=== PATIENT | female | born 1980 | race African-American/Black ===

== ENCOUNTER 2016-06-25 08:37 | Emergency (ER) | payer OTHER ==
[2016-06-25 08:46] VITALS: TEMP 98.3
--- NOTE | 2016-06-25 09:09 | ED ---
Lower Extremity Injury HPI - General Chief Complaint: Extremity Problem,Nontraumatic Stated Complaint: leg pain Time Seen by Provider: 06/25/16 08:49 Source: patient, RN notes reviewed Mode of arrival: ambulatory Limitations: no limitations - History of Present Illness Initial Comments: 36-year-old female presents to the emergency Department with chief complaint of left leg pain. Patient states has been bothersome the last 2 weeks states feels like a charley horse. Patient states that she did have right leg pain months back headache since of EMG studies and testing with Dr. Martinez. Patient does have a history of back pain. Patient states is no back pain this time just left leg pain. Patient states her some swelling. Denies any chest pain or shortness of breath. Denies any history of DVTs. - Related Data Home Medications Medication Instructions Recorded Confirmed Levothyroxine Sodium [Synthroid] 25 mcg PO DAILY 12/15/15 06/25/16 Previous Rx's Medication Instructions Recorded methylPREDNISolone [Medrol Dose 4 mg PO DIRECTED #1 pack 06/25/16 Pack] Allergies Allergy/AdvReac Type Severity Reaction Status Date / Time No Known Allergies Allergy Verified 06/25/16 09:01 Review of Systems ROS Statement: Those systems with pertinent positive or pertinent negative responses have been documented in the HPI. ROS Other: All systems not noted in ROS Statement are negative. Past Medical History Past Medical History: No Reported History, Thyroid Disorder History of Any Multi-Drug Resistant Organisms: None Reported Past Surgical History: No Surgical Hx Reported, Tubal Ligation Past Psychological History: No Psychological Hx Reported Smoking Status: Current some day smoker Past Alcohol Use History: Occasional Past Drug Use History: None Reported General Exam Limitations: no limitations General appearance: alert, in no apparent distress Respiratory exam: Present: normal lung sounds bilaterally. Absent: respiratory distress, wheezes, rales, rhonchi, stridor Cardiovascular Exam: Present: regular rate, normal rhythm, normal heart sounds. Absent: systolic murmur, diastolic murmur, rubs, gallop, clicks Extremities exam: Present: normal inspection, full ROM, normal capillary refill , calf tenderness (Mild left), other (Equal color equal warmth and pedal pulses equal bilaterally of lower extremities). Absent: tenderness, pedal edema, joint swelling Back exam: Present: full ROM. Absent: tenderness, paraspinal tenderness, vertebral tenderness Neurological exam: Present: alert, oriented X3, CN II-XII intact Skin exam: Present: warm, dry, intact, normal color. Absent: rash Course Vital Signs 06/25/16 08:39 Temperature 98.3 F Pulse Rate 80 Respiratory 20 Rate Blood Pressure 124/55 O2 Sat by Pulse 100 Oximetry Medical Decision Making - Medical Decision Making [age] female presented for left leg pain. Patient's ultrasound negative for acute DVT. Patient most likely has lumbar radiculopathy. Patient will follow- up neurology as she seen in the past. Return parameters were discussed. Disposition Clinical Impression: Lumbar radiculopathy, acute Disposition: HOME SELF-CARE Condition: Stable Instructions: Lumbar Radiculopathy (ED) Additional Instructions: Please return to the Emergency Department if symptoms worsen or any other concerns. Prescriptions: methylPREDNISolone [Medrol Dose Pack] 4 mg PO DIRECTED #1 pack Time of Disposition: 10:12
[2016-06-25 10:28] VITALS: BP 122/61; PULSE 85; RESP 16
--- NOTE | 2016-06-25 10:44 | US ---
EXAMINATION TYPE: US venous doppler duplex LE LT DATE OF EXAM: 06/25/2016 10:03 AM COMPARISON: NONE CLINICAL HISTORY: Pain. Pain left leg SIDE PERFORMED: left TECHNIQUE: The lower extremity deep venous system is examined utilizing real time linear array sonog divine with graded compression, doppler sonography and color-flow sonography. VESSELS IMAGED: External Iliac Vein (EIV) Common Femoral Vein Deep Femoral Vein Greater Saphenous Vein * Femoral Vein Popliteal Vein Small Saphenous Vein * Proximal Calf Veins (* superficial vessels) Left Leg: NO evidence of DVT Grayscale, color doppler, spectral doppler imaging performed of the deep veins of the lower extremiti es. There is normal flow, compressibility, vascular waveforms in the visualized left lower extremity . IMPRESSION: No ultrasound evidence for acute DVT in the left lower extremity.
== END 2016-06-25 10:28 | disposition home or self-care (01) ==
LOC: EC 08:37
DX: M54.16 Radiculopathy, lumbar region (principal); E07.9 Disorder of thyroid, unspecified; F17.200 Nicotine dependence, unspecified, uncomplicated; Z79.899 Other long term (current) drug therapy
CPT/HCPCS: 99283

== ENCOUNTER → 2016-07-17 | Outpatient (CLI) | payer OTHER | END | disposition home or self-care (01) | LOC: RADMRIMAIN 07:49 | PROVIDERS: ATTEND Nurse Practitioner Acute Care | DX: Z53.9 Procedure and treatment not carried out, unspecified reason (principal) ==

== ENCOUNTER → 2016-07-21 | Outpatient (CLI) | payer OTHER ==
--- NOTE | 2016-07-21 17:24 | MR ---
EXAMINATION TYPE: MR lumbar spine wo con DATE OF EXAM: 07/21/2016 COMPARISON: Prior lumbar MRI 21 April 2015 HISTORY: Lumbago TECHNIQUE: Multiplanar, multisequence images of the lumbar spine were acquired. L1-L2: Normal disc appearance without desiccation. No herniation, protrusion or disc bulging. No ca nal stenosis is present. Foramina are patent bilaterally. L2-L3: Normal disc appearance without desiccation. No herniation, protrusion or disc bulging. No ca nal stenosis is present. Foramina are patent bilaterally. L3-L4: Normal disc appearance without desiccation. No herniation, protrusion or disc bulging. No ca nal stenosis is present. Foramina are patent bilaterally. L4-L5: Normal disc appearance without desiccation. No herniation, protrusion or disc bulging. No ca nal stenosis is present. Foramina are patent bilaterally. L5-S1: Left posterior paracentral disc herniation causes anterolateral mass effect on the thecal sac and likely contact of the left S1 nerve root. Loss of disc height and signal is present. Lumbar segments are intact. No paraspinal masses are identified. Conus medullaris has a normal appe arance. Lumbar vertebral bodies show preserved height and alignment, bone marrow signal. IMPRESSION: No significant interval change. Disc herniation L5-S1 shows a stable appearance, correlate for left S 1 radiculopathy.
== END | disposition home or self-care (01) ==
LOC: RADMRIMAIN 13:54
PROVIDERS: ATTEND Nurse Practitioner Acute Care
DX: M51.27 Other intervertebral disc displacement, lumbosacral region (principal)
CPT/HCPCS: 72148

== ENCOUNTER 2016-08-29 13:45 | Emergency (ER) | payer OTHER ==
[2016-08-29 14:11] VITALS: BP 119/72; PULSE 90; RESP 20; TEMP 97.8
--- NOTE | 2016-08-29 15:37 | ED ---
Extremity Problem HPI - General Chief complaint: Extremity Problem,Nontraumatic Stated complaint: leg pain Time Seen by Provider: 08/29/16 14:18 Source: patient, RN notes reviewed, old records reviewed Mode of arrival: ambulatory Limitations: no limitations - History of Present Illness Initial comments: 36-year-old female chief complaint of left lower leg pain for the past 2 days. Patient reports that she has no injury to cause this pain. She reports that she was seen personally 2 months ago for similar complaint however this time the pain is only over her calf and towards her ankle. She states that there is no pain behind the knee or reading up the leg. She denies any swelling. She denies any warmth to the area. Patient reports that she has had no fever or chills or any other associated symptoms aside the leg pain. Patient denies any history of blood clots.Patient denies any recent fever, chills, shortness of breath, chest pain, back pain, abdominal pain, nausea vomiting, numbness or tingling, dysuria or hematuria, constipation or diarrhea, headaches or visual changes, or any other current symptoms - Related Data Previous Rx's Medication Instructions Recorded Ibuprofen [Motrin] 600 mg PO Q6HR PRN #20 tab 08/29/16 traMADol HCl [Ultram] 50 mg PO Q4H PRN #10 tab 08/29/16 Allergies Allergy/AdvReac Type Severity Reaction Status Date / Time No Known Allergies Allergy Verified 08/29/16 14:37 Review of Systems ROS Statement: Those systems with pertinent positive or pertinent negative responses have been documented in the HPI. ROS Other: All systems not noted in ROS Statement are negative. Past Medical History Past Medical History: Thyroid Disorder History of Any Multi-Drug Resistant Organisms: None Reported Past Surgical History: Tubal Ligation Past Psychological History: No Psychological Hx Reported Smoking Status: Current some day smoker Past Alcohol Use History: Occasional Past Drug Use History: None Reported General Exam - General Exam Comments Initial Comments: 36-year-old female. No distress. Limitations: no limitations Head exam: Present: atraumatic, normocephalic, normal inspection Eye exam: Present: normal appearance, PERRL, EOMI. Absent: scleral icterus, conjunctival injection, periorbital swelling ENT exam: Present: normal exam, mucous membranes moist Neck exam: Present: normal inspection. Absent: tenderness, meningismus, lymphadenopathy Respiratory exam: Present: normal lung sounds bilaterally. Absent: respiratory distress, wheezes, rales, rhonchi, stridor Cardiovascular Exam: Present: regular rate, normal rhythm, normal heart sounds. Absent: systolic murmur, diastolic murmur, rubs, gallop, clicks GI/Abdominal exam: Present: soft, normal bowel sounds. Absent: distended, tenderness, guarding, rebound, rigid Extremities exam: Present: normal inspection, full ROM, normal capillary refill , calf tenderness (Left inferior calf tenderness. No evidence of significant swelling. Patient has full range of motion of the foot and ankle.), other ( tender over achilles tendon). Absent: tenderness, pedal edema, joint swelling Back exam: Present: normal inspection Neurological exam: Present: alert, oriented X3, CN II-XII intact Psychiatric exam: Present: normal affect, normal mood Skin exam: Present: warm, dry, intact, normal color. Absent: rash Course Vital Signs 08/29/16 14:09 Temperature 97.8 F Pulse Rate 90 Respiratory 20 Rate Blood Pressure 119/72 O2 Sat by Pulse 100 Oximetry Medical Decision Making - Medical Decision Making 36-year-old female chief complaint of left lower leg pain for the past 2 days. Patient reports that she has no injury to cause this pain. She reports that she was seen personally 2 months ago for similar complaint however this time the pain is only over her calf and towards her ankle. She states that there is no pain behind the knee or reading up the leg. She denies any swelling. She denies any warmth to the area. Patient reports that she has had no fever or chills or any other associated symptoms aside the leg pain. Patient denies any history of blood clots. Patient received Doppler ultrasound left lower extremity. No evidence of deformity or swelling. Patient ultrasound is negative for DVT. Patient will be discharged with anti-inflammatory medication. Discussed stretching in the area out and massaging it. Discussed applying heat and ice over the area as well. Patient understands treatment plan will comply. Return parameters were discussed. - Radiology Data Radiology results: report reviewed Doppler ultrasound is negative for DVT. Disposition Clinical Impression: Strain of Achilles tendon Disposition: HOME SELF-CARE Condition: Good Instructions: Achilles Tendinitis (ED) Additional Instructions: Patient is apply a heat and ice over the area. Do passive stretching over the back of the calf. Also recommend massaging the area. Return to the emergency department if any alarming signs or symptoms occur. Prescriptions: Ibuprofen [Motrin] 600 mg PO Q6HR PRN #20 tab PRN Reason: Pain traMADol HCl [Ultram] 50 mg PO Q4H PRN #10 tab PRN Reason: Pain Referrals: Karen Madsen MD [Primary Care Provider] - 1-2 days Time of Disposition: 15:49
--- NOTE | 2016-08-29 15:42 | US ---
EXAMINATION TYPE: US venous doppler duplex LE LT DATE OF EXAM: 08/29/2016 3:24 PM COMPARISON: 06/25/2016 CLINICAL HISTORY: Pain. LLE SIDE PERFORMED: Left TECHNIQUE: The lower extremity deep venous system is examined utilizing real time linear array sonog divine with graded compression, doppler sonography and color-flow sonography. VESSELS IMAGED: External Iliac Vein (EIV) Common Femoral Vein Deep Femoral Vein Greater Saphenous Vein * Femoral Vein Popliteal Vein Small Saphenous Vein * Proximal Calf Veins (* superficial vessels Left Leg: Negative for DVT IMPRESSION: 1. No diagnostic evidence of DVT
== END 2016-08-29 16:08 | disposition home or self-care (01) ==
LOC: EC 13:45
DX: S86.012A Strain of left Achilles tendon, initial encounter (principal); F17.200 Nicotine dependence, unspecified, uncomplicated; X58.XXXA Exposure to other specified factors, initial encounter
CPT/HCPCS: 99284

== ENCOUNTER 2016-12-12 20:25 | Emergency (ER) | payer OTHER ==
[2016-12-12 20:39] VITALS: BP 116/73; PULSE 86; RESP 20; TEMP 98.1
[2016-12-12] MEDS ORDERED: KETOROLAC 30 MG/ML 1 ML VIAL IM STA (21:06)
--- NOTE | 2016-12-12 21:06 | ED ---
Back Pain HPI - General Chief Complaint: Back Pain/Injury Stated Complaint: pain left leg and back Time Seen by Provider: 12/12/16 20:52 Source: patient Limitations: no limitations - History of Present Illness Initial Comments: This is a 36 year old female with history of lumbar radiculopathy who presents to the emergency department with chief complaint of leg pain. Patient states that yesterday she began to experience a constant throbbing, sharp, shooting pain down to her left calf. Patient reports her low back has also felt tense and tight. She does report a history of chronic low back pain with radiculopathy. She reports she has been seen by a neurologist and an orthopedist who performed an MRI and diagnosed her with a compressed nerve. Patient has had episodes like this in the past that last months at a time. She reports she has been prescribed Tramadol but has minimal relief. She reports that she experiences the most pain with movement and walking. Most of her pain is localized to her posterior left calf. Denies fever, chills, chest pain, shortness of breath, abdominal pain, nausea or vomiting, constipation or diarrhea, dysuria or hematuria, headache or vision changes. - Related Data Home Medications Medication Instructions Recorded Confirmed Cyclobenzaprine [Flexeril] 5 mg PO DAILY PRN 12/12/16 12/12/16 Gabapentin [Neurontin] 100 mg PO BID 12/12/16 12/12/16 Levothyroxine Sodium [Synthroid] 25 mcg PO DAILY 12/12/16 12/12/16 Naproxen Sodium [Aleve] 220 mg PO DAILY PRN 12/12/16 12/12/16 Previous Rx's Medication Instructions Recorded traMADol HCl [Ultram] 50 mg PO Q4H PRN #10 tab 08/29/16 HYDROcodone/APAP 5-325MG [[place] 5] 1 each PO Q6HR PRN #12 tab 12/12/16 methylPREDNISolone Dose Pack 4 mg PO DIRECTED #21 package 12/12/16 [Medrol Dose Pack] Allergies Allergy/AdvReac Type Severity Reaction Status Date / Time No Known Allergies Allergy Verified 12/12/16 21:05 Review of Systems ROS Statement: Those systems with pertinent positive or pertinent negative responses have been documented in the HPI. ROS Other: All systems not noted in ROS Statement are negative. Past Medical History Past Medical History: Thyroid Disorder History of Any Multi-Drug Resistant Organisms: None Reported Past Surgical History: Tubal Ligation Past Psychological History: No Psychological Hx Reported Smoking Status: Current some day smoker Past Alcohol Use History: Occasional Past Drug Use History: None Reported General Exam - General Exam Comments Initial Comments: General: Awake and alert, well-developed; crying in pain throughout examination. HEENT: Head atraumatic, normocephalic. Pupils are equal, round and reactive to light. Extraocular movements intact. Oropharynx moist without erythema or exudate. Neck: Supple. Normal ROM. Cardiovascular: Regular rate and rhythm. No murmurs, rubs or gallops. Chest symmetrical. Respiratory: Lungs clear to auscultation bilaterally. No wheezes, rales or rhonchi. Normal respiratory effort with no use of accessory muscles. Musculoskeletal: Back has normal range of motion and is non-tender to palpation over the lumbar vertebrae, paraspinous muscles or SI joints. There is no tenderness elicited with palpation of posterior left calf. Pedal pulses are 2+ equal and palpable bilaterally. Left ankle and knee have full ROM. Sensation is intact. Skin: [place], warm and dry without rashes or lesions. Neurological: Alert and oriented x3. CN II-XII grossly intact. Speech is fluent and answers are appropriate. No focal neuro deficits. Psychiatric: Normal mood and affect. No overt signs of depression or anxiety noted. Limitations: no limitations Course Vital Signs 12/12/16 20:36 Temperature 98.1 F Pulse Rate 86 Respiratory 20 Rate Blood Pressure 116/73 O2 Sat by Pulse 99 Oximetry Medical Decision Making - Medical Decision Making This is a 36-year-old female with a history of lumbar radiculopathy who presents to the emergency department with chief complaint of acute left calf pain x 2 days. There is no tenderness to palpation of low back. No swelling, tenderness or erythema/discoloration of lower extremity noted. Patient has full ROM of back, left knee and left ankle. Neurovascular is intact. Patient is likely experiencing radiculopathy due to her previously diagnosed compressed nerve. She has experienced pain like this in the past and has been seen by an orthopedist and a neurologist. Patient received 30 mg IM dose of Toradol and she is in no acute distress at this time. Patient will be discharged home with a Medrol Dosepak as well as 3 days worth of [place] for pain management. She was instructed to follow-up with her orthopedist as soon as possible. Patient is in agreement with plan and voices understanding. All questions were answered. Disposition Clinical Impression: Lumbar radiculopathy Disposition: HOME SELF-CARE Condition: Good Instructions: Lumbar Radiculopathy (ED) Additional Instructions: Please follow up with your orthopedist within 1-2 days. Please take medications as prescribed. Please return to the emergency department if symptoms should worsen or any concerns arise. Prescriptions: HYDROcodone/APAP 5-325MG [[place] 5] 1 each PO Q6HR PRN #12 tab PRN Reason: Pain methylPREDNISolone Dose Pack [Medrol Dose Pack] 4 mg PO DIRECTED #21 package Referrals: Karen Madsen MD [Primary Care Provider] - 1-2 days Time of Disposition: 21:30
== END 2016-12-12 21:33 | disposition home or self-care (01) ==
LOC: EC 20:25
DX: M54.16 Radiculopathy, lumbar region (principal); E07.9 Disorder of thyroid, unspecified; F17.200 Nicotine dependence, unspecified, uncomplicated; Z79.899 Other long term (current) drug therapy
CPT/HCPCS: 99283 ×2; 96372 ×2; J1885

== ENCOUNTER 2016-12-13 15:38 | Emergency (ER) | payer OTHER ==
[2016-12-13 15:46] VITALS: RESP 18
[2016-12-13] MEDS ORDERED: DIAZEPAM 5 MG TAB PO STA (16:03)
--- NOTE | 2016-12-13 16:09 | ED ---
General Adult HPI - General Chief complaint: Extremity Injury, Lower Stated complaint: LEFT LEG PAIN Time Seen by Provider: 12/13/16 15:48 Source: patient, RN notes reviewed Mode of arrival: ambulatory Limitations: no limitations - History of Present Illness Initial comments: Patient 36-year-old female with significant past medical history for sciatica, who presents emergency room today with chief complaint of increased pain to the left lower leg. She does admit that this is a chronic problem that she's been experiencing this pain in the past. She states she was supposed to see orthopedics could not get a ride there are some she called 911 to be brought here to the emergency room. Patient does admit that she was seen here yesterday for same complaint given medication which she has been trying with little relief of her symptoms. She denies any bowel or bladder incontinence retention. She denies any saddle anesthesia. Patient denies any recent fever, chills, shortness of breath, chest pain, abdominal pain, nausea or vomiting, dysuria or hematuria, constipation or diarrhea, headaches or visual changes, or any other complaints. - Related Data Home Medications Medication Instructions Recorded Confirmed Cyclobenzaprine [Flexeril] 5 mg PO DAILY PRN 12/12/16 12/12/16 Gabapentin [Neurontin] 100 mg PO BID 12/12/16 12/12/16 Levothyroxine Sodium [Synthroid] 25 mcg PO DAILY 12/12/16 12/12/16 Naproxen Sodium [Aleve] 220 mg PO DAILY PRN 12/12/16 12/12/16 Previous Rx's Medication Instructions Recorded traMADol HCl [Ultram] 50 mg PO Q4H PRN #10 tab 08/29/16 HYDROcodone/APAP 5-325MG [[place] 5] 1 each PO Q6HR PRN #12 tab 12/12/16 methylPREDNISolone Dose Pack 4 mg PO DIRECTED #21 package 12/12/16 [Medrol Dose Pack] Allergies Allergy/AdvReac Type Severity Reaction Status Date / Time No Known Allergies Allergy Verified 12/13/16 15:41 Review of Systems ROS Statement: Those systems with pertinent positive or pertinent negative responses have been documented in the HPI. ROS Other: All systems not noted in ROS Statement are negative. Past Medical History Past Medical History: Thyroid Disorder History of Any Multi-Drug Resistant Organisms: None Reported Past Surgical History: Tubal Ligation Past Psychological History: No Psychological Hx Reported Smoking Status: Current some day smoker Past Alcohol Use History: Occasional Past Drug Use History: None Reported General Exam - General Exam Comments Initial Comments: General: The patient is awake and alert, in no distress, and does not appear acutely ill. Eye: Pupils are equal, round and reactive to light, extra-ocular movements are intact. No nystagmus. There is normal conjunctiva bilaterally. No signs of icterus. Ears, nose, mouth and throat: There are moist mucous membranes and no oral lesions. Neck: The neck is supple, there is no tenderness or JVD. Cardiovascular: There is a regular rate and rhythm. No murmur, rub or gallop is appreciated. Respiratory: Lungs are clear to auscultation, respirations are non-labored, breath sounds are equal. No wheezes, stridor, rales, or rhonchi. Musculoskeletal: Normal ROM, no tenderness. Strength 5/5. Sensation intact. Pulses equal bilaterally 2+. Neurological: A&O x 3. CN II-XII intact, There are no obvious motor or sensory deficits. Coordination appears grossly intact. Speech is normal. Skin: Skin is warm and dry and no rashes or lesions are noted. Psychiatric: Cooperative, appropriate mood & affect, normal judgment. Limitations: no limitations Course Vital Signs 12/13/16 15:41 Temperature 98.0 F Pulse Rate 94 Respiratory 18 Rate Blood Pressure 142/78 Medical Decision Making - Medical Decision Making Patient states that she did have an appointment with her orthopedic she is advised to call to reschedule her appointment. She has no bowel or bladder incontinence retention. Denies saddle anesthesia. Patient will be discharged home she was given Valium by mouth here in the emergency room also some pain medication through an IV that was established by EMS. Patient advised to follow -up the next 1-2 days return if there is any increase or worsening of her symptoms. She states understanding and agreement. She does have medications at home that she can continue to take. Disposition Clinical Impression: Lumbar radiculopathy Disposition: HOME SELF-CARE Condition: Stable Instructions: Lumbar Radiculopathy (ED) Additional Instructions: Please use medication that has been previously prescribed. Please follow-up with orthopedics tomorrow as discussed. Please return to emergency room if the symptoms increase or worsen or for any other concerns. Referrals: Karen Madsen MD [Primary Care Provider] - 1-2 days Tony Cox MD [Medical Doctor] - 1-2 days Time of Disposition: 16:41
[2016-12-13] MEDS ORDERED: DEXAMETHASONE SOD PHOSPHATE 10 MG/ML 1 ML VIAL IV STA (16:39)
[2016-12-13] MEDS ORDERED: MORPHINE SULFATE 2 MG/ML SYRINGE IV STA (16:39)
[2016-12-13 16:48] VITALS: BP 135/85; PULSE 74; TEMP 98
== END 2016-12-13 17:11 | disposition home or self-care (01) ==
LOC: EC 15:38
DX: M54.16 Radiculopathy, lumbar region (principal); E07.9 Disorder of thyroid, unspecified; F17.200 Nicotine dependence, unspecified, uncomplicated; Z79.899 Other long term (current) drug therapy
CPT/HCPCS: 99284 ×2; 96374 ×2; 96375 ×2; J1100; J2270

== ENCOUNTER → 2020-08-05 | Outpatient (CLI) | payer OTHER ==
--- NOTE | 2020-08-05 19:00 | ECHOF ---
Referral Reason:H81.10 Benign paroxysmal vertigo, unspecified MEASUREMENTS -------- HEIGHT: 165.1 cm WEIGHT: 102.5 kg BP: 134/70 RVIDd: 2.5 cm (< 3.3) IVSd: 1.2 cm (0.6 - 1.1) LVIDd: 3.7 cm (3.9 - 5.3) LVPWd: 1.2 cm (0.6 - 1.1) IVSs: 1.7 cm LVIDs: 2.6 cm LVPWs: 1.7 cm LA Diam: 2.9 cm (2.7 - 3.8) LAESV Index (A-L): 15.47 ml/m Ao Diam: 3.0 cm (2.0 - 3.7) AV Cusp: 2.0 cm (1.5 - 2.6) MV EXCURSION: 13.536 mm (> 18.000) MV EF SLOPE: 69 mm/s (70 - 150) EPSS: 0.6 cm MV E Shabbir: 0.85 m/s MV DecT: 276 ms MV A Shabbir: 0.69 m/s MV E/A Ratio: 1.24 FINDINGS -------- Sinus rhythm. This was a technically adequate study. The left ventricular size is normal. There is borderline concentric left ventricular hypertrophy. Overall left ventricular systolic function is normal with, an EF between 60 - 65 %. The right ventricle is normal in size. Normal LA size by volume 22+/-6 ml/m2. The right atrium is normal in size. Interatrial and interventricular septum intact. The aortic valve is trileaflet, and appears structurally normal. No aortic stenosis or regurgitation. An echodensity was seen on the non-coronary cusp in parasternal long axix, could be an artifact bu t vegetation to be ruled out. There is trace to mild mitral regurgitation. The tricuspid valve appears structurally normal. Unable to estimate RVSP due to inadequate TR jet s pectral doppler profile. Trace/mild (physiologic) pulmonic regurgitation. The aortic root size is normal. Normal inferior vena cava with less than 50% inspiratory collapse consistent with estimated right atr ial pressure of 15 mmHg. There is no pericardial effusion. CONCLUSIONS -------- 1. The left ventricular size is normal. 2. There is borderline concentric left ventricular hypertrophy. 3. Overall left ventricular systolic function is normal with, an EF between 60 - 65 %. 4. The aortic valve is trileaflet, and appears structurally normal. No aortic stenosis or regurgitati on. 5. An echodensity was seen on the non-coronary cusp in parasternal long axix, could be an artifact bu t vegetation to be ruled out. 6. There is trace to mild mitral regurgitation. 7. Trace/mild (physiologic) pulmonic regurgitation. 8. Normal inferior vena cava with less than 50% inspiratory collapse consistent with estimated right atrial pressure of 15 mmHg. 9. There is no pericardial effusion. UNDERTAKER ASSISTANT: Chayito Stoddard RDCS
== END | disposition home or self-care (01) ==
LOC: RADECHMAIN 12:59
PROVIDERS: ATTEND Internal Medicine
DX: I08.8 Other rheumatic multiple valve diseases (principal)
CPT/HCPCS: 93306

== ENCOUNTER → 2020-08-31 | Day surgery (SDC) | payer OTHER ==
[2020-08-25 15:35] VITALS: BMI 37.9
[~2020-08-31] MED LIST: SODIUM CHLORIDE 0.9% 1,000 ML IV SCH; SODIUM CHLORIDE 0.9% 500 ML 500 ML IV ONE; fentaNYL (PF) 50 MCG/ML 2 ML AMP IVP ONE; fentaNYL (PF) 50 MCG/ML 2 ML AMP ONE
[2020-08-31 09:26] VITALS: RESP 18; TEMP 97.1
[2020-08-31] MEDS: BENZOCAINE SPRAY 1 CAN MUCOUS MEM ONE ×3 (10:25→10:42)
[2020-08-31] MEDS: MIDAZOLAM 2 MG/2 ML VIAL IVP ONE ×2 (10:42→10:43)
[2020-08-31 11:51] VITALS: BP 164/85; PULSE 76
--- NOTE | 2020-08-31 14:31 | ECHOT ---
TRANSESOPHAGEAL ECHOCARDIOGRAM INDICATION: Abnormal 2D echo. PROCEDURE NOTE: After obtaining informed consent, transesophageal echocardiogram is performed using an Omni plane probe. Local and IV sedation were obtained with Xylocaine spray, intravenous Versed and fentanyl. Patient tolerated the procedure well without any obvious immediate complications. The patient had a 2D color Doppler evaluation. FINDINGS: 1. Aortic valve is a 3-leaflet valve. There is no evidence of aortic stenosis or regurgitation. I do not see any echodense lesion on the aortic valve. Mitral valve is anatomically normal. There is no mitral regurgitation. Tricuspid valve appears normal. Interatrial septum, there is no evidence of [id number] shunt by agitated saline contrast study. 2. Left ventricle has normal size and systolic function. 3. Left atrium appears normal. 4. Aorta appears within normal limits. CONCLUSION: Aortic valve appears normal. The echodense lesion that was described on a 2D echo is not seen. The patient does not require any further workup. MMODL / IJN: [id number] /
== END ==
LOC: CATHCVL 08:51
PROVIDERS: ATTEND Internal Medicine Cardiovascular Disease
DX: R93.1 Abnormal findings on diagnostic imaging of heart and coronary circulation (principal); M19.90 Unspecified osteoarthritis, unspecified site; Z79.890 Hormone replacement therapy
CPT/HCPCS: 93312; 93320; 93325; J2250; J3010

== ENCOUNTER → 2020-11-09 | Outpatient (CLI) | payer OTHER ==
--- NOTE | 2020-11-09 10:30 | XR ---
EXAMINATION TYPE: XR knee limited RT DATE OF EXAM: 11/09/2020 COMPARISON: NONE HISTORY: Pain TECHNIQUE: Two views are submitted. FINDINGS: There is mild narrowing of the medial compartment of the knee joint and patellofemoral joint. No eros mandy changes. Osseous structures are intact. No acute fracture seen. IMPRESSION: 1. No acute fracture or dislocation. If symptoms persist consider MRI
== END | disposition home or self-care (01) ==
LOC: RADXRMAIN 10:11
PROVIDERS: ATTEND Internal Medicine
DX: M25.561 Pain in right knee (principal)

== ENCOUNTER → 2021-01-12 | Outpatient (CLI) | payer OTHER ==
--- NOTE | 2021-01-13 11:46 | MM ---
Reason for exam: screening (asymptomatic). Baseline mammogram. Physical Findings: Nurse did not find any significant physical abnormalities on exam. MG 3D Screening Mammo W/Cad Bilateral CC and MLO view(s) were taken. There are scattered fibroglandular densities. There is no discrete abnormality. ASSESSMENT: Negative, BI-RAD 1 RECOMMENDATION: Routine screening mammogram of both breasts in 1 year.
== END ==
LOC: RADMAMWWP 10:56
PROVIDERS: ATTEND Internal Medicine
DX: Z12.31 Encounter for screening mammogram for malignant neoplasm of breast (principal)
CPT/HCPCS: 77063; 77067

== ENCOUNTER → 2023-07-18 | Outpatient (CLI) | payer OTHER ==
--- NOTE | 2023-07-18 12:19 | XR ---
EXAMINATION TYPE: XR knee limited RT DATE OF EXAM: 07/18/2023 11:56 AM CLINICAL INDICATION:Female, 43 years old with history of [id number] PAIN IN RIGHT KNEE; [facility] COMPARISON: None. TECHNIQUE: XR knee limited RT; examined in Frontal, lateral and oblique projections. FINDINGS: No evidence of any acute osseous pathology, soft tissue swelling, or joint effusion is no betsey. IMPRESSION: 1. No acute osseous pathology. 2. Mild tricompartmental osteoarthritic changes.
--- NOTE | 2023-07-19 08:07 | MM ---
Reason for Exam: Screening (asymptomatic). Last mammogram was performed 2 year(s) and 6 month(s) ago. Patient History: Menarche at age 17. First Full-Term at age 21. Last menstrual period: 06/30/2023 Risk Values: Jacquelyn 5 year model risk: 0.6%. NCI Lifetime model risk: 7.3%. Prior Study Comparison: 01/12/2021 Bilateral Screening Mammogram, [facility]. Tissue Density: There are scattered areas of fibroglandular density. Findings: Analyzed By CAD. Right breast: There is no suspicious group of microcalcifications or new suspicious mass. Left breast: There is no suspicious group of microcalcifications or new suspicious mass. Overall Assessment: Negative, BI-RAD 1 Management: Screening Mammogram of both breasts in [address] [facility] will attempt to contact patient to return for supplemental views and ultrasound if indicated. Patient should continue monthly self-breast exams. A clinical breast exam by your physician is recommended on an annual basis. This exam should not preclude additional follow-up of suspicious palpable abnormalities. Note on Jacquelyn scores and lifetime risk: 1. A Jacquelyn score greater than 3% is considered moderate risk. If this is the case, consider specialist referral to assess eligibility for a risk reducing agent. 2. If overall lifetime risk for the development of breast cancer is 20% or higher, the patient may qualify for future screening with alternating mammogram and breast MRI. Electronically signed and approved by: Steve Garduno DO
== END | disposition home or self-care (01) ==
LOC: RADMAMWWP 11:09
PROVIDERS: ATTEND Internal Medicine Geriatric Medicine
DX: Z12.31 Encounter for screening mammogram for malignant neoplasm of breast (principal); M17.11 Unilateral primary osteoarthritis, right knee
CPT/HCPCS: 77063; 77067

== ENCOUNTER 2024-05-14 07:18 | Day surgery (SDC) | payer MEDICAID ==
[2024-05-12 14:51] VITALS: BMI 36.9
[2024-05-14] MEDS: SODIUM CHLORIDE 0.9% 500 ML 500 ML IV ONE (07:43)
[2024-05-14] MEDS: SODIUM CHLORIDE 0.9% 1,000 ML IV SCH (07:56)
[2024-05-14 10:01] VITALS: PULSE 72
--- NOTE | 2024-05-14 19:20 | P.EPPROC ---
- EP Procedure Note Electrophysiology Procedure Note: Diagnosis Recurrent syncope Twelve-lead EKG shows sinus rhythm normal IL narrow QRS normal ST segments normal QT interval Patient underwent tilt table testing per protocol Baseline blood pressure 156/76 mmHg baseline heart rate 70 beats minute Patient was tilted upright from angle of 70 degrees per protocol No change in heart rate or blood pressure No evidence for neurocardiogenic syncope or dysautonomia Blood pressure readings were elevated Impression Normal twelve-lead EKG Elevated blood pressure readings but no symptoms, no evidence for neurocardiogenic syncope or dysautonomia
== END 2024-05-14 09:53 | disposition home or self-care (01) ==
LOC: CATHEP 07:18
PROVIDERS: ATTEND Internal Medicine Clinical Cardiac Electrophysiology
DX: R55 Syncope and collapse (principal); R03.0 Elevated blood-pressure reading, without diagnosis of hypertension; E02 Subclinical iodine-deficiency hypothyroidism; D64.9 Anemia, unspecified; N92.0 Excessive and frequent menstruation with regular cycle; E55.9 Vitamin D deficiency, unspecified
CPT/HCPCS: 81025; 93660